=== PATIENT | female | born 1960 | race Caucasian/White ===

== ENCOUNTER → 2016-12-09 13:57 | Outpatient (CLI) | payer OTHER | END | disposition home or self-care (01) | LOC: D.RAD 13:57 | DX: S93.401A Sprain of unspecified ligament of right ankle, initial encounter (principal) ==

== ENCOUNTER → 2016-12-22 17:56 | Outpatient (CLI) | payer OTHER | END | disposition home or self-care (01) | LOC: D.MAMMO 15:30 | DX: Z12.31 Encounter for screening mammogram for malignant neoplasm of breast (principal) ==

== ENCOUNTER 2018-01-22 08:00 | Outpatient (CLI) | payer OTHER | END 2018-01-22 09:00 | disposition home or self-care (01) | LOC: D.MAMMO 08:00 | DX: Z12.31 Encounter for screening mammogram for malignant neoplasm of breast (principal) ==

== ENCOUNTER → 2018-02-21 18:36 | Outpatient (CLI) | payer OTHER | END | disposition home or self-care (01) | LOC: D.MAMMO 09:30 | DX: R92.8 Other abnormal and inconclusive findings on diagnostic imaging of breast (principal) ==

== ENCOUNTER 2018-10-08 08:00 | Outpatient (CLI) | payer OTHER | END 2018-10-08 23:59 | disposition home or self-care (01) | LOC: D.MAMMO 08:00 | PROVIDERS: ATTEND Family Medicine | DX: R92.8 Other abnormal and inconclusive findings on diagnostic imaging of breast (principal) ==

== ENCOUNTER → 2019-04-25 09:14 | Outpatient (CLI) | payer OTHER | END | disposition home or self-care (01) | LOC: D.HCCARDIO 09:14 | PROVIDERS: ATTEND Internal Medicine Cardiovascular Disease | DX: I20.9 Angina pectoris, unspecified (principal) ==

== ENCOUNTER 2019-05-06 11:14 | Outpatient (CLI) | payer OTHER ==
[~2019-05-06] VITALS: Ht 175.3 cm; Wt 77.3 kg
--- NOTE | ~2019-05-06 | HEMODYNAMI ---
PATIENT:TREVER HENRY MEDICAL RECORD: [id number] : 64 LOCATION:[facility]SE ADMISSION DATE: 05/06/19 Generatedon:05/06/201914:52 Patient name: TREVER HENRY Patient #: [id number] SSN : [id number] : 1960 Date of study: 05/06/2019 Page: Of Hemodynamic Procedure Report Patient Data Patient Demographics Procedure consent was obtained First Name: TREVER Gender: Female Last Name: CARL : 1960 Patient #: [id number] Age: 58 year(s) Race: SSN: [id number] Additional ID: [id number] Contact details [address]: [address] [place] [address] State: [place] City: [place] Zip code: [address] Past Medical History Allergies Allergen Reaction Date Comments Reported Other allergy 05/06/2019 LISINOPRIL Admission Admission Data Admission Date: 05/06/2019 Admission Time: 11:14 Arrival Date: 05/06/2019 Arrival Time: 0:00 Admit Source: Other Insurance Payor: Private health insurance [facility] #: [id number] Height (in.): 69 BSA: 1.93 (m2) Height (cm.): 175.26 BMI: 25.16 (kg/m2) Weight (lbs.): 170.35 Weight (kg.): 77.27 Lab Results Lab Result Date: 05/06/2019 Lab Result Time: 0:00 Biochemistry Name Units Result Min Max BUN mg/dl 14 --(--*-)-- 7 18 Creatinine mg/dl 0.7 --(*---)-- 0.6 1.3 eGFR ml/min 90 --(*---)-- 90 120 NONAFRICAN CBC Name Units Result Min Max Hematocrit % 42.3 --(*---)-- 42 54 Hemoglobin g/dl 14.7 --(-*--)-- 13.5 17.5 Procedure Procedure Types Cath Procedure Diagnostic Procedure [facility] w/Coronaries Procedure Description Procedure Date Procedure Date: 05/06/2019 Procedure Start Time: 14:40 Procedure End Time: 14:49 Procedure Staff Name Function Phil Mensah MD Performing Physician Haley Vincent RT Monitor Rosaline Baker RT Scrub Toni Alonso RN Nurse Procedure Data Cath Procedure Fluoroscopy Diagnostic fluoroscopy Total fluoroscopy Time: 1.5 time: 1.5 min min Diagnostic fluoroscopy Total fluoroscopy dose: 315 dose: 315 mGy mGy Contrast Material Contrast Material Type Amount (ml) Isovue 300 53 Entry Location Entry Primary Successful Side Size Upsize Upsize Entry Closure Sanchez ccessful Closure Location (Fr) 1 (Fr) 2 (Fr) Remarks Device Remarks Radial Right 6 Fr Mechanical artery Short Compression Estimated blood loss: 5 ml Diagnostic catheters Device Type Used For End Catheter Placement DIAGNOSTIC [place] 110cm 5 Procedure Fr catheter ([id number]) Procedure Complications No complications Procedure Medications Medication Administration Route Dosage 0.9% NaCl I.V. 100 ml/hr Oxygen etCO2 Nasal cannula 2 l/min Heparin Flush Bag added to field 2 bags (1000units/500ml NS) Lidocaine 2% added to field 20 Radial Cocktail added to field 1 syringe (Verapamil 2mg/Nitro 400mcg/Heparin 1500units) Benadryl I.V. 50 mg Versed I.V. 2 mg Fentanyl I.V. 100 mcg Versed I.V. 2 mg Radial Cocktail I.A. 1 syringe (Verapamil 2mg/Nitro 400mcg/Heparin 1500units) Hemodynamics Rest BSA: 1.93 (m2) HGB: 14.7 (g/dl) O2 Consumption: Estimated: 185.27 (ml/min) O2 Co nsumption indexed: Estimated:95.99 (ml/min/m) Heart Rate: 70 (bpm) Pressure Samples Time Site Value (mmHg) Purpose Heart Use Rate(bpm) 14:42 LV 120/-5,3 Snapshot 56 Gradients Valve Time Site Site Mean SEP/DFP Peak To Heart Use 1 2 (mmHg) (sec/min) Peak Rate (mmHg) (bpm) Aortic 14:42 LV AO 78 Snapshots Pre Cath Intra NCS Post Cath Vital Signs Time Heart Resp SPO2 etCO2 NIBP (mmHg) Rhythm Pain Sedation Rate (ipm) (%) (mmHg) Status Level (bpm) 14:19:29 75 14 96 34.6 134/89(110) NSR 0 (11) 10(A) , No pain 14:23:37 73 15 96 42.1 143/90(115) NSR 0 (11) 10(A) , No pain 14:27:51 73 10 94 18 128/81(108) NSR 0 (11) 10(A) , No pain 14:31:53 73 11 92 0 136/94(109) NSR 0 (11) 10(A) , No pain 14:36:00 81 11 95 41.4 139/86(108) NSR 0 (11) 10(A) , No pain 14:40:08 73 13 94 42.9 138/92(115) NSR 0 (11) 10(A) , No pain 14:44:20 78 13 88 27.1 130/74(100) NSR 0 (11) 9(A) , No pain 14:48:28 75 11 94 36.1 134/87(104) NSR 0 (11) 9(A) , No pain Medications Time Medication Route Dose Verified Delivered Reason Notes Effectiveness by by 14:20:45 0.9% NaCl I.V. 100 Toni Toni Per ml/hr Gavin Alonso physician RN RN 14:20:53 Oxygen etCO2 2 l/min Toni Toni for low 02 Nasal Lorigan Lorigan sats cannula RN RN 14:21:03 Heparin Flush added 2 bags Toni Toni used for Bag to Lorigan Gavin procedure (1000units/500ml RN RN NS) 14:21:12 Lidocaine 2% added 20ml Toni Toni for local to vial Lorigan Lorigan anesthetic field MOHR RN 14:21:22 Radial Cocktail added 1 Toni Toni used for (Verapamil to syringe Lorigan Lorigan procedure 2mg/Nitro field RN RN 400mcg/Heparin 1500units) 14:21:36 Benadryl I.V. 50 mg Toni Toni Per Gavin Alonso physician RN RN 14:36:23 Versed I.V. 2 mg Toni Toni for sedation Gavin Alonso RN RN 14:36:32 Fentanyl I.V. 100 mcg Toni Toni for sedation Gavin Alonso RN RN 14:39:07 Versed I.V. 2 mg Toni Toni for sedation Gavin Alonso RN RN 14:40:39 Radial Cocktail I.A. 1 Toni Phil for (Verapamil syringe Gavin Mensah MD vasodilation 2mg/Nitro RN 400mcg/Heparin 1500units) Procedure Log Time Note 14:00:51 Informed consent obtained and on chart 14:00:56 Diagnostic Cath Status : Elective 14:01:11 Admit Source: Other 14:01:14 Procedure Status Elective Heart Cath (OP). 14:01:15 Toni Alonso RN sent for patient. Start room use. 14:01:27 Arrival Date: 05/06/2019 12:00:00 AM 14:01:41 Insurance Payor : Private health insurance 14:01:44 Patient Height : 69 inches 14:01:49 Patient Weight : 170.35 lbs 14:03:02 Time tracking: Regular hours (M-F 7:00 - 5:00) 14:03:05 Plan of Care:Hemodynamics will remain stable., Cardiac rhythm will remain stable., Comfort level will be maintained., Respiratory function will remain adequate., Patient/ family verbilizes understanding of procedure., Procedure tolerated without complication., Recovers from procedure without complications.. 14:04:20 H&P Date Dictated: 04/16/2019 Within 30 days and on chart., H&P Addendum completed by physician on day of procedure. (MUST COMPLETE FOR ALL OUTPATIENTS). 14:04:36 Patient allergic to Other allergyLISINOPRIL 14:05:51 Lab Result : BUN 14 mg/dl 14:05:51 Lab Result : Hemoglobin 14.7 g/dl 14:05:51 Lab Result : Hematocrit 42.3 % 14:05:51 Lab Result : Creatinine 0.7 mg/dl 14:05:51 Lab Result : eGFR NONAFRICAN 90 ml/min 14:08:24 Patient received from Pre/Post Procedure Room to CCL 1 Alert and oriented. Tansferred to table in Supine position. 14:08:26 Warm blankets applied, and michelle hugger turned on for patient comfort. 14:08:26 Correct patient and procedure confirmed by team. 14:08:26 ECG and BP/O2 sat monitors applied to patient. 14:18:19 Vital chart was started 14:18:20 Baseline sample Acquired. 14:18:24 Rhythm: sinus rhythm 14:18:25 Full Disclosure recording started 14:18:26 Pre-procedure instructions explained to patient. 14:18:26 Pre-op teaching completed and patient verbalized understanding. 14:18:27 Family in patients room. 14:18:34 Patient NPO since Midnight. 14:18:38 Is the patient allergic to Iodine/contrast media? No. 14:18:39 Is patient on blood thinner?No 14:18:41 Patient diabetic? No. 14:19:01 Previous problem with sedation/anesthesia? No ? 14:19:02 Snore? Yes 14:19:03 Sleep apnea? Yes 14:19:04 Deviated septum? No 14:19:06 Sticks out tongue? Yes 14:19:06 Opens mouth fully? Yes 14:19:09 Airway obstruction? No ? 14:19:11 Dentures? No ? 14:19:15 Modified Brayan's test Ulnar < 7 seconds 14:19:17 Pre procedure: right dorsailis pedis pulse 2+ Normal; easily identifiable; not easily obliterated 14:19:23 Patient pain scale 0/10 ?. 14:19:29 IV patent on arrival in left antecubital with 0.9% NaCl at [facility]. 14:19:34 Lab results completed and on chart. 14:19:38 Right Radial & Right Groin area was prepped with chlora-prep and draped in sterile fashion 14:19:39 Alarms reviewed by R. N. 14:19:39 Sharps counted by scrub and verified by R.N. 14:20:32 Stress Test: yes; abnormal ANTERIOR, APICAL, INFERIOR 14:20:45 0.9% NaCl 100 ml/hr I.V. was administered by Toni Alonso RN; Per physician; Verbal order read back and verified. 14:20:53 Oxygen 2 l/min etCO2 Nasal cannula was administered by Toni Alonso RN; for low 02 sats; Verbal order read back and verified. 14:21:03 Heparin Flush Bag (1000units/500ml NS) 2 bags added to field was administered by Toni Alonso RN; used for procedure; Verbal order read back and verified. 14:21:12 Lidocaine 2% 20ml vial added to field was administered by Toni Alonso RN; for local anesthetic; Verbal order read back and verified. 14:21:22 Radial Cocktail (Verapamil 2mg/Nitro 400mcg/Heparin 1500units) 1 syringe added to field was administered by Toni Alonso RN; used for procedure; Verbal order read back and verified. 14:21:36 Benadryl 50 mg I.V. was administered by Toni Alonso RN; Per physician; Verbal order read back and verified. 14:23:53 Risk of Mortality: .1 14:23:55 Risk of blood transfusion: .1 14:24:04 Risk of YANI: .1 14:24:08 Use device set Radial Dx or PCI 14:24:08 ACIST Syringe (53063) opened to sterile field. 14:24:10 Bag Decanter () opened to sterile field. 14:24:10 ACIST Hand Control (70970) opened to sterile field. 14:24:10 ACIST Manifold (50292) opened to sterile field. 14:24:12 Tegaderm 4 x 4 (1626W) opened to sterile field. 14:24:13 Medline Cath Pack ([id number]) opened to sterile field. 14:24:14 MBrace Wrist Support ([id number]) opened to sterile field. 14:24:15 NEEDLE Cook 21G 4cm Radial (J35944) opened to sterile field. 14:24:17 EMERALD Guide Wire (301-072) opened to sterile field. 14:24:17 SHEATH 6FR RAIN (5916795) opened to sterile field. 14:28:05 Zero performed for pressure channel P1 14:35:53 --------ALL STOP TIME OUT------ 14:35:53 Final Timeout: patient, procedure, and site verified with staff and physician. All members of the team are in agreement. 14:35:56 Right Radial & Right Groin site verified by team. 14:35:59 Fire Safety Assessment: A--An alcohol-based skin anteseptic being used preoperatively., C--Open oxygen or nitrous oxide is being used., D--An ESU, laser, or fiber-optic light is being used. 14:36:02 Physical assessment completed. ASA score P 2 - A patient with mild systemic disease as per Phil Mensah MD. 14:36:05 1) 90+ Normal kidney functon but urine findings or structural abnormalities or genetic trait point to kidney disease. 14:36:08 Maximum allowable contrast dose (3.7 X eGFR X 0.75)250 ml. 14:36:11 Sedation plan: IV Moderate Sedation Medication:Versed, Fentanyl 14:36:23 Versed 2 mg I.V. was administered by Toni Alonso RN; for sedation; Verbal order read back and verified. 14:36:32 Fentanyl 100 mcg I.V. was administered by Toni Alonso RN; for sedation; Verbal order read back and verified. 14:37:16 Zero performed for pressure channel P1 14:39:03 Procedure started. 14:39:07 Versed 2 mg I.V. was administered by Toni Alonso RN; for sedation; Verbal order read back and verified. 14:40:37 Local anesthetic to right radial artery with Lidocaine 2% by Phil Mensah MD.INITIAL ACCESS ONLY 14:40:39 Radial Cocktail (Verapamil 2mg/Nitro 400mcg/Heparin 1500units) 1 syringe I.A. was administered by Phil Mensah MD; for vasodilation; Verbal order read back and verified. 14:40:55 A 6 Fr Short sheath was inserted into the Right Radial artery 14:41:34 A DIAGNOSTIC [place] 110cm 5 Fr catheter (201989) was advanced over the wire and used for Procedure. 14:42:20 LV gram done using SANZ 14:42:22 Injector settings: Ml/sec: 5, Volume: 15, 14:42:26 LV hemodynamics recorded. 14:42:35 EF : 55 % 14:44:34 LCA angiography performed. 14:44:36 RCA angiography performed. 14:44:40 ACCDominant side:Co-Dominant 14:45:07 Catheter removed. 14:45:25 ZEPHYR REGULAR TR BAND (565075) opened to sterile field. 14:45:30 Procedure ended.(Physican Out) 14:45:54 Sheath removed intact; hemostasis achieved with Mechanical Compression to the Right Radial artery. 14:45:58 Fluoroscopy time 01.50 minutes. 14:46:03 Fluoroscopy dose: 315 mGy 14:46:03 Flurop Dose total: 315 14:46:14 Dose Area Product 96702 mGy/cm. 14:46:35 Contrast amount:Isovue 300 53ml. 14:46:37 Maximum allowable dose exceeded? No. 14:46:38 Sharps counted by scrub and verified by R.N. 14:46:42 [place] band inflated with 10cc of air. 14:47:26 Post-procedure physical assessment completed. ASA score P 2 - A patient with mild systemic disease as per Phil Mensah MD. 14:47:29 Post procedure rhythm: sinus rhythm 14:47:33 Estimated blood loss: 5 ml 14:47:35 Post procedure instruction explained to patient.Patient verbalizes understanding. 14:47:35 Patient needs reinforcement of post procedure teaching. 14:49:16 Procedure and supply charges have been captured, reviewed, submitted and are correct. 14:49:19 Procedure Complication : No complications 14:49:22 Vital chart was stopped 14:49:23 [facility] Findings: mild to moderate CAD (<70%) 14:49:25 Operative report dictated upon procedure completion. 14:49:25 See physician's report for complete and final results. 14:49:27 Report given to Pre/Post Procedure Room. 14:49:29 Patient transfered to Pre/Post Procedure Room with Bed. 14:49:34 Procedure ended. 14:49:34 Full Disclosure recording stopped 14:49:37 End room use (Document Last) 14:51:26 End room use (Document Last) 14:51:43 End room use (Document Last) Device Usage Item Name Manufacture Quantity Catalog Hospital Part Current Minima l Lot# / Number Charge Number Stock Stock Serial# Code ACIST Acist 1 00785 887122 349595 679327 20 Syringe Medical (52688) Systems Inc Bag Microtek 1 588199 25622 028796 5 Decanter Medical Inc. () ACIST Hand Acist 1 48549 995298 569446 716404 5 Control Medical (19598) Systems Inc ACIST Acist 1 91091 829490 959695 607370 5 Manifold Medical (40123) Systems Inc Tegaderm 4 3M 1 1626W 629098 309398 778046 5 x 4 (1626W) Medline Medline 1 [id number] 931759 13552 723764 5 Cath Pack ([id number]) MBrace Advanced 1 140-0250-00 912510 43959 871374 5 Wrist Vascular Support Dynamics ([id number]) NEEDLE WISE s.r.l Medical 1 T11189 001345 943719 949681 5 21G 4cm Radial (R31140) EMERALD Cardinal 1 502-332 297234 139066 300151 5 Guide Wire Health (067-914) SHEATH 6FR Cardinal 1 9571501 824537 5551131 859901 5 [facility] (4716242) DIAGNOSTIC Terumo 1 40-1826 306052 862024 553376 5 [place] 110cm 5 Fr catheter (595902) ZEPHYR Cardinal 1 993276 000813 1150465 037674 5 REGULAR TR Health BAND (894368) Signature Audit Sherman Stage Time Signature Unsigned Intra-Procedure 05/06/2019 Haley Vincent 2:51:26 PM RT(R) Intra-Procedure 05/06/2019 Toni 2:51:43 PM Gavin MOHR Intra-Procedure 05/06/2019 Phil Mensah MD 2:52:06 PM [facility] [address] [place] [address]
[2019-05-06] MEDS ORDERED: LIPITOR10 MG PO (11:29)
[2019-05-06] MEDS ORDERED: KLONOPIN1 MG PO (11:29)
[2019-05-06] MEDS ORDERED: HCTZ25 MG PO (11:30)
[2019-05-06] MEDS ORDERED: EFFEXOR75 MG PO (11:30)
[2019-05-06] MEDS ORDERED: TENORMIN50 MG PO (11:31)
[2019-05-06 11:51] VITALS: BP 159/89; Ht 175.3 cm; Wt 77.3 kg
[2019-05-06 12:04] LABS: BASOPHILS 0.7 % (0-2); EOSINOPHILS 2.8 % (0-7); HEMATOCRIT 42.3 % (36.0-48.0); HEMOGLOBIN 14.7 g/dL (12-16); IMMATURE GRANULOCYTES 0.2 % (0-5); LYMPHOCYTES 45.5 % (15-50); MCH 30.4 pg (26.0-34.0); MCHC 34.8 g/dL (31.0-37.0); MCV 87.6 fL (80.0-100.0); MEAN PLATELET VOLUME 9.5 fL (7.4-10.4); MONOCYTES 9.3 % (2-11); NEUTROPHILS 41.5 % (40-80); PLATELET COUNT 282 10x3/uL (130-400); RBC 4.83 10x6/uL (4.00-5.40); RDW 13.2 % (11.5-14.5); WBC 4.3 10x3/uL (4.8-10.8)
[2019-05-06 13:42] LABS: ALT (SGPT) 43 U/L (10-68); CALC OSMOLALITY 272 mosm/kg (275-300); CALCIUM 8.8 mg/dL (8.5-10.1); CARBON DIOXIDE 29.2 mmol/L (21.0-32.0); CHLORIDE - SERUM 103 mmol/L (98-107); CHOLESTEROL, TOTAL 186 mg/dL (0-200); CREATININE - SERUM 0.7 mg/dL (0.6-1.3); GLUCOSE 100 mg/dL (74-106); HDL CHOLESTEROL 62 mg/dL (32-96); LDL CHOLESTEROL 97 mg/dL (0-100); LDL-HDL RATIO 1.6 ratio (1.5-3.5); SODIUM 136 mmol/L (136-145); TRIGLYCERIDE 136 mg/dL (30-200); UREA NITROGEN 14 mg/dL (7-18); eGFR NON AFRICAN AMERICAN > 90 mL/min (90-120)
--- NOTE | 2019-05-06 14:58 | NUR ---
PT ARRIVED BY STRETCHER. PLACED ON MONITORS. ASSESSMENT COMPLETED. FAMILY AT BEDSIDE.
--- NOTE | 2019-05-06 15:15 | NUR ---
RIGHT WRIST Z BAND IN PLACE. NO BLEEDING/HEMATOMA NOTED. VSS. CALL LIGHT WITHIN REACH.
--- NOTE | 2019-05-06 15:30 | NUR ---
PT'S HEAD OF BED AT 30 DEGREES. SET UP WITH SANDWICH TRAY AND DRINK. DENIES NAUSEA AT THIS TIME. VSS.
--- NOTE | 2019-05-06 15:45 | NUR ---
PT RESTING COMFORTABLY. RIGHT WRIST Z BAND IN PLACE. NO BLEEDING/HEMATOMA NOTED. CALL LIGHT WITHIN REACH. FAMILY AT BEDSIDE.
--- NOTE | 2019-05-06 16:05 | NUR ---
4cc OF AIR REMOVED FROM Z BAND. NO BLEEDING/HEMATOMA NOTED. TOLERATED WELL. VSS. NO NEEDS AT THIS TIME.
--- NOTE | 2019-05-06 16:20 | NUR ---
3cc OF AIR REMOVED FROM Z BAND. NO BLEEDING/HEMATOMA NOTED. TOLERATING WELL. VSS. NO NEEDS AT THIS TIME.
--- NOTE | 2019-05-06 16:35 | NUR ---
3cc OF AIR REMOVED FROM Z BAND. NO BLEEDING/HEMATOMA NOTED. CALL LIGHT WITHIN REACH. FAMILY AT BEDSIDE. VSS. NO NEEDS AT THIS TIME.
--- NOTE | 2019-05-06 16:45 | NUR ---
DISCUSSED DISCHARGE INSTRUCTIONS WITH PT AND PT'S FAMILY. THEY VOICED UNDERSTANDING.
--- NOTE | 2019-05-06 16:45 | NUR ---
Z BAND REMOVED AND DRESSING APPLIED. NO BLEEDING/HEMATOMA NOTED. PIV D/C'D WITH CATH TIP INTACT. TOLERATED WELL. PT INSTRUCTED TO GET UP AND DRESSED AT THIS TIME.
--- NOTE | 2019-05-06 17:00 | NUR ---
PT AMBULATED TO RESTROOM. VOIDED WITHOUT DIFFICULTY. STEADY GAIT NOTED. RIGHT WRIST DRESSING C/D/I. NO S/S OF BLEEDING/HEMATOMA NOTED. RIGHT WRIST BRACE IN PLACE. PT TAKEN OUT TO VEHICLE BY WHEELCHAIR. NO S/S OF DISTRESS NOTED. ALL BELONGINGS AND PAPERWORK IN HAND.
== END 2019-05-06 17:00 | disposition home or self-care (01) ==
LOC: D.CATH 11:14
PROVIDERS: ATTEND Internal Medicine Cardiovascular Disease
DX: I20.9 Angina pectoris, unspecified (principal); R94.39 Abnormal result of other cardiovascular function study; R07.9 Chest pain, unspecified; I10 Essential (primary) hypertension; E78.5 Hyperlipidemia, unspecified

== ENCOUNTER → 2019-07-30 12:22 | Outpatient (CLI) | payer OTHER ==
[2019-05-06 11:51] VITALS: BMI 25.1
[~2019-07-30 12:22] MED LIST: EFFEXOR75 MG PO; HCTZ25 MG PO; KLONOPIN1 MG PO; LIPITOR10 MG PO; TENORMIN50 MG PO
== END | disposition home or self-care (01) ==
LOC: D.NM 07-29 13:30 → D.US 12:22 → D.NM 13:30
PROVIDERS: ATTEND Internal Medicine Gastroenterology
DX: R10.84 Generalized abdominal pain (principal); R11.2 Nausea with vomiting, unspecified

== ENCOUNTER 2019-08-15 07:40 | Day surgery (SDC) | payer OTHER ==
[2019-08-14 12:26] LABS: BASOPHILS 0.5 % (0-2); EOSINOPHILS 2.6 % (0-7); HEMATOCRIT 42.4 % (36.0-48.0); HEMOGLOBIN 14.1 g/dL (12-16); IMMATURE GRANULOCYTES 0.2 % (0-5); LYMPHOCYTES 42.2 % (15-50); MCH 29.7 pg (26.0-34.0); MCHC 33.3 g/dL (31.0-37.0); MCV 89.5 fL (80.0-100.0); MEAN PLATELET VOLUME 9.4 fL (7.4-10.4); MONOCYTES 8.6 % (2-11); NEUTROPHILS 45.9 % (40-80); PLATELET COUNT 300 10x3/uL (130-400); RBC 4.74 10x6/uL (4.00-5.40); RDW 12.9 % (11.5-14.5); WBC 4.2 10x3/uL (4.8-10.8)
[2019-08-14 12:33] LABS: CALCIUM 8.7 mg/dL (8.5-10.1); CARBON DIOXIDE 36.6 mmol/L (21.0-32.0); POTASSIUM - SERUM 3.6 mmol/L (3.5-5.1)
[~2019-08-15] VITALS: Ht 175.3 cm; Wt 82.6 kg
[2019-08-15 07:59] VITALS: BP 140/90; Ht 175.3 cm; Wt 82.6 kg
[2019-08-15] MEDS ORDERED: DILAUDID2 MG PO (10:51)
--- NOTE | 2019-08-15 14:56 | NUR ---
1330-REMOVED IV WITH CATH INTACT,DISPOSED INTO SHARPS,COVERED WITH GUAZE,SECURED WITH MEDIPORE TAPE.
--- NOTE | 2019-08-15 14:58 | NUR ---
1345-REVIEWED POST OP INSTRUCTIONS AND FOLLOW UP APPOINTMENT.VSS.PAIN 05/06. DRESSINGS TO ABD CDI. VERBALIZED UNDERSTANDING OF INSTRKUCTIONS. ESCORTED OUT VIA W/C BY STAFF WITH SPOUSE AWAITING TO DRIVE HOME.
--- NOTE | 2019-08-16 13:40 | OP ---
PATIENT NAME: TREVER HENRY MEDICAL RECORD: [id number] :64 LOCATION:D.OPS ADMISSION DATE: SURGEON: ALEXYS MARTINEZ MD DATE OF OPERATION: 08/15/2019 PREOPERATIVE DIAGNOSES: 1. Chronic cholecystitis. 2. Hypertension. 3. Hyperlipidemia. 4. Gastroesophageal reflux disease. POSTOPERATIVE DIAGNOSES: 1. Chronic cholecystitis. 2. Hypertension. 3. Hyperlipidemia. 4. Gastroesophageal reflux disease. PROCEDURE: Laparoscopic cholecystectomy. SURGEON: Alexys Martinez MD REPORT OF PROCEDURE: The patient's abdomen was prepped and draped in sterile fashion. A cutdown was made on the superior aspect of the umbilicus, 0 Vicryls were placed in the fascia bilaterally and the fascia was incised with 15-blade. I then bluntly entered the peritoneal cavity and placed a 12-mm Morgan port. Under direct visualization, a 5-mm trocar was placed in the epigastrium and two more 5-mm trocars were placed in the right subcostal region. The gallbladder was grasped and elevated. Cystic artery and cystic duct were dissected free and these structures were clipped proximally and distally and ligated in standard fashion. The gallbladder was then taken off the liver bed using electrocautery and placed into an Endo Catch bag. Right upper quadrant was then irrigated out with normal saline. Any bleeding was treated with electrocautery. The ports and insufflation were then removed and the gallbladder was taken out through the umbilicus. The umbilical fascia was closed with interrupted 0 Vicryls times 3. The wounds were then irrigated out with normal saline and infused with 10 mL of 0.25% Marcaine with epinephrine. The skin incisions were all closed with subcutaneous 5-0 Monocryl and dressed appropriately. COMPLICATIONS: None. CONDITION: Stable. ANESTHESIA: General endotracheal and local. BLOOD LOSS: Minimal. TRANSINT:[id number] Voice Confirmation ID: [id number] DOCUMENT ID: [id number] OPERATIVE REPORT [id number] TREVER HENRY CHRISTIAN MD at 1340 CC: LYRIC BIANCHI DO [id number] DICTATION DATE: 08/15/19 1053 MANAGER SPECIAL EVENTS: 08/15/19 1151 [facility] 08/15/19 [facility] [address] [place] [address]
== END 2019-08-15 13:45 | disposition home or self-care (01) ==
LOC: D.OPS 07:40 → D.PAN 09:45 → D.OPS 09:45 → D.PAN 12:00 → D.OPS 13:45
PROVIDERS: ATTEND Surgery
DX: K81.1 Chronic cholecystitis (principal); I10 Essential (primary) hypertension; E78.5 Hyperlipidemia, unspecified; K21.9 Gastro-esophageal reflux disease without esophagitis; Z72.0 Tobacco use

== ENCOUNTER 2020-07-02 14:30 | Outpatient (CLI) | payer OTHER ==
[2019-08-15 07:59] VITALS: BMI 26.9
[~2020-07-02 14:30] MED LIST changes: +DILAUDID2 MG PO
== END 2020-07-02 23:59 | disposition home or self-care (01) ==
LOC: D.MAMMO 14:30
PROVIDERS: ATTEND Family Medicine
DX: Z12.31 Encounter for screening mammogram for malignant neoplasm of breast (principal)